=== PATIENT | female | born 1945 | race Caucasian/White ===

== ENCOUNTER → 2017-04-13 17:21 | Outpatient (CLI) | payer MEDICARE ==
[2016-03-14 01:19] VITALS: BMI 31.3
[~2017-04-13 17:21] MED LIST: BAYER CHEWABLE81 MG PO; DIOVAN40 MG PO; GLIMEPIRIDE2 MG PO; LUNESTA3 MG PO; PLAVIX75 MG PO; PRILOSEC20 MG PO; WELLBUTRIN SR150 MG PO; [UNRECOGNIZED DRUG - OTHER]
== END | disposition home or self-care (01) ==
LOC: D.MAMMO 16:00
DX: Z12.31 Encounter for screening mammogram for malignant neoplasm of breast (principal)

== ENCOUNTER 2017-09-28 08:22 | Outpatient (CLI) | payer MEDICARE ==
[~2017-09-28] VITALS: Ht 175.3 cm; Wt 96.4 kg
--- NOTE | ~2017-09-28 | HEMODYNAMI ---
PATIENT:ELIS PEDERSEN MEDICAL RECORD: [id number] : 49 [id number] ADMISSION DATE: 09/28/17 Generatedon:09/28/201710:24 Patient name: ELIS PEDERSEN Patient #: [id number] SSN: : 1945 Date of study: 09/28/2017 Page: Of Hemodynamic Procedure Report Patient Data Patient Demographics Procedure consent was obtained First Name: ELIS Gender: Female Last Name: SLAVA : 1945 Middle Initial: YULIET Age: 72 year(s) Patient #: [id number] Race: Additional ID: [id number] Contact details [address]: [address] [place] [address] State: [place] City: [place] Zip code: [address] Past Medical History Allergies: No known allergies Admission Admission Data Admission Date: 09/28/2017 Admission Time: 8:22 Height (in.): 70 BSA: 2.13 (m2) Height (cm.): 177.8 BMI: 30.13 (kg/m2) Weight (lbs.): 210 Weight (kg.): 95.25 Procedure Procedure Types Cath Procedure Diagnostic Procedure LHC LHC w/Coronaries w/Grafts PCI Procedure Coronary Stent Coronary Stent Initial Miscellaneous Procedures Moderate Sedation up to 15 minutes Procedure Description Procedure Date Procedure Date: 09/28/2017 Procedure Start Time: 9:55 Procedure End Time: 10:22 Procedure Staff Name Function Waylon Headley MD Performing Physician Lita Melgar RT Monitor Andrea Baca RT Scrub Hank Giles RN Nurse Procedure Data Cath Procedure Fluoroscopy Diagnostic fluoroscopy Total fluoroscopy Time: 8.5 time: 8.5 min min Contrast Material Contrast Material Type Amount (ml) Isovue 300 140 Entry Location Entry Primary Successful Side Size Upsize Upsize Entry Closure Succes sful Closure Location (Fr) 1 (Fr) 2 (Fr) Remarks Device Remarks Femoral Right 5 Fr 6 Fr Exoseal artery Short Estimated blood loss: 10 ml Diagnostic catheters Device Type Used For End Catheter Placement MULTIPACK Pigtail 5 Fr LV Angiography catheter MULTIPACK JL 4.0 5Fr Procedure catheter MULTIPACK 3DRC 5Fr Procedure catheter Procedure Complications No complications Procedure Medications Medication Administration Route Dosage 0.9% NaCl I.V. 100 ml/hr Oxygen NC 2 l/min Heparin Flush Bag added to field 2 bags (1000units/500ml NS) Lidocaine 2% added to field 20 Benadryl I.V. 50 mg Versed I.V. 2 mg Fentanyl I.V. 100 mcg Versed I.V. 2 mg Heparin Bolus I.V. 4000 units Fentanyl I.V. 50 mcg Hemodynamics Rest BSA: 2.13 (m2) O2 Consumption: Estimated: 196.62 (ml/min) O2 Consumption indexed : Estimated:92.31 (ml/min/m) Heart Rate: 70 (bpm) Snapshots Pre Cath Intra NCS Post Cath Vital Signs Time Heart Resp SPO2 etCO2 NIBP (mmHg) Rhythm Pain Sedation Rate (ipm) (%) (mmHg) Status Level (bpm) 9:40:42 61 13 100 0 167/71(140) NSR 0 (11) 10(A) , No pain 9:45:06 61 15 100 0 154/76(127) NSR 0 (11) 10(A) , No pain 9:49:24 60 13 98 37.3 140/72(121) NSR 0 (11) 10(A) , No pain 9:53:42 66 30 96 10.6 142/75(123) NSR 0 (11) 10(A) , No pain 9:57:58 66 17 91 0 138/77(109) NSR 0 (11) 10(A) , No pain 10:02:14 70 19 97 28.2 143/79(113) NSR 0 (11) 9(A) , No pain 10:06:28 69 19 97 0 134/71(114) NSR 0 (11) 10(A) , No pain 10:10:42 71 18 95 36.5 137/76(112) NSR 0 (11) 9(A) , No pain 10:14:59 71 17 96 0 150/75(106) NSR 0 (11) 10(A) , No pain 10:19:14 72 16 97 41.8 144/77(116) NSR 0 (11) 10(A) , No pain 10:23:33 67 10 97 44.1 141/73(107) NSR 0 (11) 10(A) , No pain Medications Time Medication Route Dose Verified Delivered Reason Notes Effectiveness by by 9:49:23 0.9% NaCl I.V. 100 Hank Hank Per physician ml/hr Tisha Giles RN RN 9:49:33 Oxygen NC 2 Hank Hank Per physician l/min Tisha Giles RN RN 9:49:45 Heparin Flush added 2 Hank Hank used for Bag to bags Tisha Giles procedure (1000units/500ml field RN RN NS) 9:49:58 Lidocaine 2% added 20ml Hank Hank for local to vial Tisha Giles anesthetic field CABAN RN 9:50:14 Benadryl I.V. 50 mg Hank Hank Per physician Tisha Giles RN RN 9:50:23 Versed I.V. 2 mg Hank Hank for sedation Tisha Giles RN RN 9:50:33 Fentanyl I.V. 100 Hank Hank for sedation nidia Giles RN RN 9:53:07 Versed I.V. 2 mg Hank Hank for sedation Tisha Giles RN RN 10:04:05 Heparin Bolus I.V. 4000 Hank Hank for units Tisha hager RN RN 10:07:52 Fentanyl I.V. 50 Hank Hank for sedation nidia Giles RN crap game box person Log Time Note 9:33:14 Patient Height : 70 inches 9:33:19 Patient Weight : 210 lbs 9:33:52 Diagnostic Cath status Elective 9:33:55 Hank Giles RN sent for patient. Start room use. 9:33:56 Time tracking: Regular hours 9:34:01 Plan of Care:Hemodynamics will remain stable., Cardiac rhythm will remain stable., Comfort level will be maintained., Respiratory function will remain adequate., Patient/ family verbilizes understanding of procedure., Procedure tolerated without complication., Recovers from procedure without complications.. 9:37:07 Patient received from Pre/Post Procedure Room to CCL 3 Alert and oriented. Tansferred to table in Supine position. 9:37:09 Warm blankets applied, and rachelle hugger turned on for patient comfort. 9:37:09 Correct patient and procedure confirmed by team. 9:37:10 Signed procedure consent form obtained from patient. 9:37:11 ECG and BP/O2 sat monitors applied to patient. 9:39:20 Vital chart was started 9:40:06 H&P Date Dictated: 09/21/2017 Within 30 days and on chart., H&P Addendum completed by physician on day of procedure. (MUST COMPLETE FOR ALL OUTPATIENTS). 9:40:10 Pre-procedure instructions explained to patient. 9:40:14 Family in waiting room. 9:40:16 Patient NPO since Midnight. 9:40:23 Patient allergic to No known allergies 9:40:28 Is the patient allergic to Iodine/contrast media? No. 9:40:29 Was the patient premedicated? Yes 9:40:50 Is patient on blood thinner?Yes 9:40:53 ACC The patient was administered the following blood thiners within the last 24 hours: ACCPlavix 9:40:56 Patient diabetic? Yes. 9:40:58 If diabetic: On Metformin? No 9:41:02 Snore? No 9:41:03 Sleep apnea? No 9:41:07 Dentures? No ? 9:41:25 Patient pain scale 0/10 ?. 9:41:33 IV patent on arrival in left hand with 0.9% NaCl at [facility]. 9:41:38 Baseline sample Acquired. 9:41:44 Rhythm: sinus rhythm 9:41:47 Full Disclosure recording started 9:49:23 0.9% NaCl 100 ml/hr I.V. was administered by Hank Giles RN; Per physician; 9:49:23 Lab results completed and on chart. 9:49:28 Right groin area was prepped with chlora-prep and draped in sterile fashion 9:49:29 Alarms reviewed by R. N. 9:49:30 Sharps counted by scrub and verified by R.N. 9:49:30 Physician paged 9:49:31 Physician arrived 9:49:32 --------ALL STOP TIME OUT------ 9:49:32 Final Timeout: patient, procedure, and site verified with staff and physician. All members of the team are in agreement. 9:49:33 Oxygen 2 l/min NC was administered by Hank Giles RN; Per physician; 9:49:37 Right groin site verified by team. 9:49:40 Physical assessment completed. ASA score P 2 - A patient with mild systemic disease as per Waylon Headley MD. 9:49:45 Heparin Flush Bag (1000units/500ml NS) 2 bags added to field was administered by Hank Giles RN; used for procedure; 9:49:48 Sedation plan: IV Moderate Sedation Medication:Versed, Fentanyl 9:49:58 Lidocaine 2% 20ml vial added to field was administered by Hank Giles RN; for local anesthetic; 9:50:14 Benadryl 50 mg I.V. was administered by Hank Giles RN; Per physician; 9:50:23 Versed 2 mg I.V. was administered by Hank Giles RN; for sedation; 9:50:33 Fentanyl 100 mcg I.V. was administered by Hank Giles RN; for sedation; 9:53:07 Versed 2 mg I.V. was administered by Hank Giles RN; for sedation; 9:54:24 Zero performed for pressure channel P1 9:54:36 Use device set Femoral Dx 9:54:37 ACIST Syringe (17917) opened to sterile field. 9:54:38 Bag Decanter (2002S) opened to sterile field. 9:54:38 Medline Cath Pack ([id number]) opened to sterile field. 9:54:38 SHEATH 5FR [place] (ALJ517) opened to sterile field. 9:54:39 DIAGNOSTIC WIRE .035 260cm J wire (018467) opened to sterile field. 9:54:40 ACIST Hand Control (80719) opened to sterile field. 9:54:40 ACIST Manifold (07902) opened to sterile field. 9:54:41 DIAGNOSTIC Multipack 5Fr catheter set (LI4113) opened to sterile field. 9:54:41 Tegaderm 4 x 4 (1626W) opened to sterile field. 9:54:43 PERCUTANEOUS ENTRY 19GA needle opened to sterile field. 9:54:57 Procedure started. 9:55:41 Local anesthetic to right femoral artery with Lidocaine 2% by Waylon Headley MD.INITIAL ACCESS ONLY 9:55:52 A 5 Fr sheath was inserted into the Right Femoral artery 9:56:44 A MULTIPACK Pigtail 5 Fr catheter was advanced over the wire and used for LV Angiography. 9:57:20 EF : 60 % 9:57:22 Catheter removed. 9:57:34 A MULTIPACK JL 4.0 5Fr catheter was advanced over the wire and used for Procedure. 9:57:39 LCA angiography performed. 9:58:37 Catheter removed. 9:58:46 A MULTIPACK 3DRC 5Fr catheter was advanced over the wire and used for Procedure. 9:59:34 RUIZ to LAD angiography performed. 9:59:44 RCA angiography performed. 10:00:56 SVG angiography performed. 10:01:01 SVG to Circ angiography performed. 10:01:12 Catheter removed. 10:01:14 SHEATH 6FR [place] (RDS581) opened to sterile field. 10:02:01 Sheath upsized to a 6 Fr Short. 10:02:32 Proceeding to intervention. 10:02:52 6 Fr AR 1 guide catheter was inserted over the wire 10:02:59 Pt ex wire advanced. 10:03:00 Wire advanced across lesion. 10:03:24 GUIDE 6FR AR 1.0 SH catheter ([id number]) opened to sterile field. 10:03:29 INFLATOR Merit BasixCompak (VO3319) opened to sterile field. 10:04:05 Heparin Bolus 4000 units I.V. was administered by Hank Giles RN; for anticoagulation; 10:06:00 CHOICE PT Extra Support 182cm wire ([id number]) opened to sterile field. 10:07:10 2.0x15 unable to cross 10:07:52 Fentanyl 50 mcg I.V. was administered by Hank Giles RN; for sedation; 10:08:13 Inflation number: 1 A EUPHORA 1.5 x 15 Balloon ([id number]) was prepped and advanced across the Dist RCA, then inflated to 17 JOHN for 0:10 (min:sec). 10:08:22 Inflation number: 2 The EUPHORA 1.5 x 15 Balloon ([id number]) was reinflated across the Dist RCA, to 17 JOHN for 0:10 (min:sec). 10:09:40 Balloon removed over the wire. 10:09:47 Guide Catheter removed. unable to cross lesion. 10:12:02 CHOICE PT Extra Support J 300cm guide wire ([id number]) opened to sterile field. 10:12:24 GUIDE 6FR AR 2.0 SH catheter ([id number]) opened to sterile field. 10:12:36 Study PCI Site: [place] dRCA has 99% stenosis. 10:12:44 6 Fr AR2 guide catheter was inserted over the wire 10:12:57 EXTRA SUPPORT wire advanced. 10:12:59 Wire advanced across lesion. 10:13:32 Inflation number: 3 A MAVERICK 1.5 X 15 balloon ([id number]) was prepped and advanced across the Dist RCA, then inflated to 17 JOHN for 0:06 (min:sec). 10:15:00 Balloon removed over the wire. 10:15:29 Inflation Number: 1 A REBECA RX 2.25 x 12 stent ([id number]) was prepped and advanced across the Mid RCA. The stent was deployed at 21 JOHN for 0:10 (min:sec). 10:16:21 UNABLE TO CROSS DISTAL RCA LESION. STENT PLACED IN MID RCA. 10:16:49 EXOSEAL 6Fr (EX600) opened to sterile field. 10:16:54 Wire removed. 10:16:55 Guide catheter removed. 10:17:06 Sheath removed intact; hemostasis achieved with Exoseal to the Right Femoral artery. 10:19:05 Procedure ended.(Physican Out) 10:19:20 Fluoroscopy time 08.50 minutes. 10:19:34 Contrast amount:Isovue 300 140ml. 10:19:36 Sharps counted by scrub and verified by R.N. 10:19:40 Insertion/operative site no bleeding no hematoma. 10:19:47 Post right femoral artery:stable 10:19:51 Post Procedure Pulses reassessed and unchanged 10:19:55 Post-procedure physical assessment completed. ASA score P 2 - A patient with mild systemic disease as per Waylon Headley MD. 10:19:59 Post procedure rhythm: unchanged. 10:20:10 Estimated blood loss: 10 ml 10:20:14 Post procedure instruction explained to patient.Patient verbalizes understanding. 10:20:35 Procedure type changed to Cath procedure, Diagnostic procedure, LHC, LHC w/Coronaries w/Grafts, PCI procedure, Coronary Stent, Coronary Stent Initial, Miscellaneous Procedures, Moderate Sedation up to 15 minutes 10:20:37 Procedure and supply charges have been captured, reviewed, submitted and are correct. 10:22:47 Procedure Complication : No complications 10:22:49 Vital chart was stopped 10:22:50 See physician's report for complete and final results. 10:22:57 Patient transfered to Pre/Post Procedure Room with Stretcher. 10:22:59 Procedure ended. 10:22:59 Full Disclosure recording stopped 10:23:01 End room use (Document Last) 10:23:14 ACC-PCI Only Patient was given prescriptions, or instructed by Waylon Headley MD to start/continue the following medications upon discharge: Plavix Intervention Summary Intervention Notes Time ActionType Lesion and Equipment Used Action# Pressure Duration Attributes 10:08:13 Inflate Dist RCA EUPHORA 1.5 x 1 17 00:10 balloon 15 Balloon ([id number]) 10:08:22 Reinflate Dist RCA EUPHORA 1.5 x 2 17 00:10 balloon 15 Balloon ([id number]) 10:13:32 Inflate Dist RCA MAVERICK 1.5 X 3 17 00:06 balloon 15 balloon ([id number]) 10:15:29 Place stent Mid RCA REBECA RX 2.25 x 1 21 00:10 12 stent ([id number]) Device Usage Item Name Manufacture Quantity Catalog Number Hospital Part Current Minimal Lot# / Charge Number Stock Stock Serial# Code ACIST Syringe Acist 1 60130 878308 862271 [id number] 20 (02541) Medical Systems Inc Bag Decanter Microtek 1 2001S 338936 92562 869901 5 () Medical Inc. Medline Cath Cardinal 1 [id number] 392797 85646 934985 5 Pack Health ([id number]) SHEATH 5FR Terumo 1 VFH826 213223 731324 852972 40 [place] (JEH371) DIAGNOSTIC St [place] 1 262622 914333 172241 900270 30 WIRE .035 260cm J wire (226485) ACIST Hand Acist 1 46271 096970 184732 684853 5 Control Medical (08614) Systems Inc ACIST Manifold Acist 1 15408 173132 977485 043496 5 (12348) Medical Systems Inc DIAGNOSTIC Cardinal 1 AE1352 299650 64336 865045 30 Multipack 5Fr Health catheter set (NN6915) Tegaderm 4 x 4 3M 1 1626W 769525 927414 460334 5 (1626W) PERCUTANEOUS Cook Medical 1 W28091 716902 770667 5 ENTRY 19GA needle MULTIPACK Cardinal 1 012524 5 Pigtail 5 Fr Health catheter MULTIPACK JL Cardinal 1 405274 5 4.0 5Fr Health catheter MULTIPACK 3DRC Cardinal 1 840805 5 5Fr catheter Health SHEATH 6FR Terumo 1 TZH454 078916 560215 072360 40 [place] (CUY454) GUIDE 6FR AR Medtronic 1 [id number] 314959 56403 298309 1 1.0 SH catheter ([id number]) INFLATOR Merit Merit 1 TP0627 061406 661237 669462 15 BasixCompak Medical (YO8840) CHOICE PT [place] 1 [id number] 483656 121350 824562 5 Extra Support Scientific 182cm wire ([id number]) EUPHORA 1.5 x Medtronic 1 [id number] 402321 460906 165780 5 [id number] 15 Balloon ([id number]) CHOICE PT [place] 1 [id number] 855086 405894 629538 5 Extra Support Scientific J 300cm guide wire ([id number]) GUIDE 6FR AR Medtronic 1 [id number] 825094 12077 282381 1 2.0 SH catheter (RT4BI1AP) MAVERICK 1.5 X [place] 1 [id number] 044056 334767 176692 1 [id number] 15 balloon Scientific ([id number]) REBECA RX 2.25 x Medtronic 1 [id number] 252305 3746362 974120 5 [id number] 12 stent ([id number]) EXOSEAL 6Fr Cardinal 1 EX600 063262 346172 375582 10 (EX600) Health Signature Audit [place] Stage Time Signature Unsigned Intra-Procedure 09/28/2017 Lita Melgar 10:24:15 AM RT(R) Signatures Monitor : Lita Melgar Signature : RT Date : Time : [facility] [address] [place] [address]
--- NOTE | ~2017-09-28 | OP ---
PATIENT NAME: ELIS PEDERSEN MEDICAL RECORD: [id number] :49 LOCATION:D.CAT ADMISSION DATE: SURGEON: ESTEBAN KELLER MD DATE OF OPERATION: 09/28/2017 PROCEDURES: 1. PTCA stent to RCA. 2. Left heart catheterization. 3. Selective coronary angiography. 4. Left ventriculogram. 5. Vein graft angiography. 6. RUIZ angiography. INDICATION: Angina and coronary artery disease. PROCEDURE IN DETAIL: After informed consent was obtained and after detailed explanation of risks, benefits as well as alternative therapies, the patient elected to proceed with angiogram and angioplasty. The right femoral area was prepped and draped in normal sterile fashion. Right femoral artery was cannulated via modified Seldinger technique with placement of 6-Turkish sheath. All catheters exchanged through this sheath. FINDINGS: Left ventriculogram was performed in standard 30-degree BREWER view, reveals preserved cardiac wall motion, ejection fraction 50%. SELECTIVE CORONARY ANGIOGRAPHY: 1. Left main showed no significant angiographic disease. 2. Left anterior descending is totally occluded. 3. RUIZ to the LAD is widely patent. Distal LAD is widely patent. 4. Left circumflex is totally occluded. 5. Vein graft in a skipped fashion to OM1 and OM2 is widely patent. The distal obtuse marginals are patent, but small and diffusely diseased. 6. The right coronary artery has previously placed stents. There is 70% stenosis in the mid vessel after this followed by a 99% stenosis of the PLV. The PLV and PDA are both very small diffusely diseased vessels throughout. PTCA STENT OF THE RIGHT CORONARY ARTERY: The stent used was a 2.25 x 12 mm Jani. We attempted to balloon the lesion in the PLV; however, no balloon would traverse this, not a 1.5 [place] or [place]. IMPRESSION: Successful percutaneous transluminal coronary angioplasty stent of the right coronary artery going from 70% initial stenosis to 0% residual stenosis. Distal disease to the RCA at 99% could not be crossed by any balloon. This will be treated medically. TRANSINT:[id number] Voice Confirmation ID: [id number] DOCUMENT ID: [id number] OPERATIVE REPORT [id number] ELIS PEDERSEN ESTEBAN KELLER MD at 1800 CC: [id number] DICTATION DATE: 09/28/17 1020 EXERCISE MANAGER: 09/28/17 1211 DEP CLI 09/28/17 [id number] [place] [address]
[2017-09-28] MEDS ORDERED: ZANAFLEX2 M1 PO (08:42)
[2017-09-28] MEDS ORDERED: DIOVAN80 MG PO (08:43)
[2017-09-28] MEDS ORDERED: PRESERVISION AR1 CAP PO (08:44)
[2017-09-28] MEDS ORDERED: FOLIC ACID0.8 MG PO (08:44)
[2017-09-28 09:02] LABS: BASOPHILS 1.1 % (0-2); EOSINOPHILS 5.5 % (0-7); HEMATOCRIT 34.3 % (36.0-48.0); HEMOGLOBIN 10.5 g/dL (12-16); IMMATURE GRANULOCYTES 0.2 % (0-5); MCH 26.4 pg (26.0-34.0); MCHC 30.6 g/dL (31.0-37.0); MCV 86.4 fL (80.0-100.0); MEAN PLATELET VOLUME 9.9 fL (7.4-10.4); MONOCYTES 12.4 % (2-11); NEUTROPHILS 56.8 % (40-80); PLATELET COUNT 200 10x3/uL (130-400); RBC 3.97 10x6/uL (4.00-5.40); RDW 15.5 % (11.5-14.5); WBC 5.5 10x3/uL (4.8-10.8)
[2017-09-28 09:04] VITALS: BP 146/64; Ht 175.3 cm; Wt 96.4 kg
[2017-09-28 09:13] LABS: ANION GAP 13.8 mmol/L (8-16); CALCIUM 8.1 mg/dL (8.5-10.1); CARBON DIOXIDE 26.4 mmol/L (21.0-32.0); CREATININE - SERUM 1.5 mg/dL (0.6-1.3); POTASSIUM - SERUM 4.2 mmol/L (3.5-5.1)
== END 2017-09-28 14:21 | disposition home or self-care (01) ==
LOC: D.CATH 08:22
PROVIDERS: Internal Medicine Interventional Cardiology
DX: I25.119 Atherosclerotic heart disease of native coronary artery with unspecified angina pectoris (principal); Z01.812 Encounter for preprocedural laboratory examination
CPT/HCPCS: 93459; C9600

== ENCOUNTER 2018-07-27 10:36 | Outpatient (CLI) | payer MEDICARE ==
[~2018-07-27] VITALS: Ht 175.3 cm; Wt 84.1 kg
--- NOTE | ~2018-07-27 | HEMODYNAMI ---
PATIENT:ELIS PEDERSEN MEDICAL RECORD: [id number] : 49 LOCATION:[facility] [address]# [id number] ADMISSION DATE: 07/27/18 Generatedon:07/27/201816:07 Patient name: ELIS PEDERSEN Patient #: [id number] SSN: : 1945 Date of study: 07/27/2018 Page: Of Hemodynamic Procedure Report Patient Data Patient Demographics Procedure consent was obtained First Name: ELIS Gender: Female Last Name: SLAVA : 1945 [facility] Initial: YULIET Age: 73 year(s) Patient #: [id number] Race: Additional ID: [id number] Contact details Address: [address] [place] [address] State: [place] City: [place] Zip code: [address] Past Medical History Allergies: No known allergies Admission Admission Data Admission Date: 07/27/2018 Admission Time: 13:34 Room #: E03 Height (in.): 68.9 BSA: 2 (m2) Height (cm.): 175 BMI: 27.43 (kg/m2) Weight (lbs.): 185.19 Weight (kg.): 84 Lab Results Lab Result Date: 07/27/2018 Lab Result Time: 0:00 Biochemistry Name Units Result Min Max BUN mg/dl 31 --(----)-* 7 18 Creatinine mg/dl 1.8 --(----)-* 0.6 1.3 CBC Name Units Result Min Max Hemoglobin g/dl 12.7 -*(----)-- 13.5 17.5 Procedure Procedure Types Cath Procedure Diagnostic Procedure LHC LHC w/Coronaries w/Grafts PCI Procedure Coronary Stent Coronary Stent Initial x2 Procedure Description Procedure Date Procedure Date: 07/27/2018 Procedure Start Time: 15:36 Procedure End Time: 16:07 Procedure Staff Name Function Waylon Headley MD Performing Physician Hank Giles RN Nurse Summer Garcia RT Scrub Paul Mcgill RT Monitor Procedure Data Cath Procedure Fluoroscopy Diagnostic fluoroscopy Total fluoroscopy Time: 9.7 time: 9.7 min min Diagnostic fluoroscopy Total fluoroscopy dose: dose: 1206 mGy 1206 mGy Contrast Material Contrast Material Type Amount (ml) Isovue 300 152 Entry Location Entry Primary Successful Side Size Upsize Upsize Entry Closure Succes sful Closure Location (Fr) 1 (Fr) 2 (Fr) Remarks Device Remarks Femoral Right 5 Fr 6 Fr Exoseal artery Short Estimated blood loss: 20 ml Diagnostic catheters Device Type Used For End Catheter Placement MULTIPACK Pigtail 5 Fr Procedure catheter MULTIPACK JL 4.0 5Fr Procedure catheter MULTIPACK 3DRC 5Fr Procedure catheter DIAGNOSTIC AR MOD 5Fr Procedure Catheter ([id number]) Procedure Medications Medication Administration Route Dosage 0.9% NaCl I.V. 100 ml/hr Oxygen etCO2 Nasal cannula 2 l/min Heparin Flush Bag added to field 2 bags (1000units/500ml NS) Lidocaine 2% added to field 20 Versed I.V. 2 mg Fentanyl I.V. 100 mcg Versed I.V. 1 mg Heparin Bolus I.V. 4000 units Versed I.V. 1 mg Hemodynamics Rest BSA: 2 (m2) HGB: 12.7 (g/dl) O2 Consumption: Estimated: 193.09 (ml/min) O2 Consu mption indexed: Estimated:96.54 (ml/min/m) Heart Rate: 82 (bpm) Pressure Samples Time Site Value (mmHg) Purpose Heart Use Rate(bpm) 15:37 LV 126/1,6 Snapshot 73 Snapshots Pre Cath Intra NCS Post Cath Vital Signs Time Heart Resp SPO2 etCO2 NIBP (mmHg) Rhythm Pain Sedation Rate (ipm) (%) (mmHg) Status Level (bpm) 15:27:10 83 16 99 0 166/87(125) NSR 0 (11) 10(A) , No pain 15:31:30 80 18 100 32.1 150/78(112) NSR 0 (11) 10(A) , No pain 15:35:48 81 12 98 14.1 125/67(104) NSR 0 (11) 10(A) , No pain 15:39:56 82 13 98 23.1 119/68(96) NSR 0 (11) 10(A) , No pain 15:44:04 85 14 99 36.5 123/67(93) NSR 0 (11) 9(A) , No pain 15:48:12 84 13 99 32.8 120/65(88) NSR 0 (11) 9(A) , No pain 15:53:11 86 17 100 34.3 143/81(120) NSR 0 (11) 10(A) , No pain 15:57:23 84 17 100 33.6 143/80(121) NSR 0 (11) 10(A) , No pain 16:01:36 84 17 100 30.6 136/74(115) NSR 0 (11) 10(A) , No pain 16:05:49 84 14 98 32.1 124/73(96) NSR 0 (11) 10(A) , No pain Medications Time Medication Route Dose Verified Delivered Reason Notes Effectiveness by by 15:29:23 0.9% NaCl I.V. 100 Hank Hank Per physician ml/hr Tisha Giles RN RN 15:29:32 Oxygen etCO2 2 Hank Hank Per physician Nasal l/min Tisha Giles cannula RN RN 15:29:41 Heparin Flush added 2 Hank Hank used for Bag to bags Tisha Giles procedure (1000units/500ml field RN RN NS) 15:30:10 Lidocaine 2% added 20ml Hank Hank for local to vial Tisha Giles anesthetic field RN RN 15:32:41 Versed I.V. 2 mg Hank Hank for sedation Tisha Giles RN RN 15:32:48 Fentanyl I.V. 100 Hank Hank for sedation mcg Tisha Giles RN RN 15:38:05 Versed I.V. 1 mg Hank Hank for sedation Tisha Giles RN RN 15:44:53 Heparin Bolus I.V. 4000 Hank Hank for units Tisha Giles anticoagulation RN RN 15:55:57 Versed I.V. 1 mg Hank Hank for sedation Tisha Giles RN dimethylaniline sulfator operator Log Time Note 15:17:06 Patient Height : 68.9 inches 15:17:10 Patient Weight : 185.19 lbs 15:17:51 Lab Result : BUN 31 mg/dl 15:17:51 Lab Result : Creatinine 1.8 mg/dl 15:17:51 Lab Result : Hemoglobin 12.7 g/dl 15:18:28 Diagnostic Cath status Elective 15:18:30 Hank Giles RN sent for patient. Start room use. 15:18:32 Time tracking: Regular hours (M-F 7:00 - 5:00) 15:18:38 Plan of Care:Hemodynamics will remain stable., Cardiac rhythm will remain stable., Comfort level will be maintained., Respiratory function will remain adequate., Patient/ family verbilizes understanding of procedure., Procedure tolerated without complication., Recovers from procedure without complications.. 15:18:53 Patient received from Pre/Post Procedure Room to CCL 2 Alert and oriented. Tansferred to table in Supine position. 15:18:58 Warm blankets applied, and rachelle hugger turned on for patient comfort. 15:25:47 Correct patient and procedure confirmed by team. 15:26:01 Signed procedure consent form obtained from patient. 15:26:02 ECG and BP/O2 sat monitors applied to patient. 15:26:03 Vital chart was started 15:26:04 Baseline sample Acquired. 15:26:08 Rhythm: sinus rhythm 15:26:11 Full Disclosure recording started 15:26:16 H&P Date Dictated: 07/27/2018 ER History on chart.. 15:26:19 Pre-procedure instructions explained to patient. 15:26:19 Pre-op teaching completed and patient verbalized understanding. 15:26:23 Family in waiting room. 15:26:29 Patient NPO since Breakfast. 15:27:55 Patient allergic to No known allergies 15:28:00 Is the patient allergic to Iodine/contrast media? No. 15:28:13 Is patient on blood thinner?Yes 15:28:17 ACC The patient was administered the following blood thiners within the last 24 hours: ACCAspirin, ACCPlavix 15:28:20 Patient diabetic? Yes. 15:28:21 If diabetic: On Metformin? No 15:28:33 DIET CONTROLLED 15::38 ----Pre-sedation anethsthesia assessment.---- 15:28:41 Previous problem with sedation/anesthesia? No ? 15:28:43 Snore? Yes 15:28:46 Sleep apnea? Yes 15:28:48 Deviated septum? No 15:28:50 Opens mouth fully? Yes 15:28:51 Sticks out tongue? Yes 15:28:55 Airway obstruction? No ? 15:29:00 Dentures? No ? 15:29:23 0.9% NaCl 100 ml/hr I.V. was administered by Hank Giles RN; Per physician; 15:29:32 Oxygen 2 l/min etCO2 Nasal cannula was administered by Hank Giles RN; Per physician; 15:29:34 Lab results completed and on chart. 15:29:39 Right groin area was prepped with chlora-prep and draped in sterile fashion 15::41 Heparin Flush Bag (1000units/500ml NS) 2 bags added to field was administered by Hank iGles RN; used for procedure; 15::41 Alarms reviewed by R. N. 15::42 Sharps counted by scrub and verified by R.N. 15:30:10 Lidocaine 2% 20ml vial added to field was administered by Hank Giles RN; for local anesthetic; 15:30:53 IV patent on arrival in left wrist with 0.9% NaCl at [facility]. 15:31:15 Physician arrived 15:31:16 --------ALL STOP TIME OUT------ 15:31:16 Final Timeout: patient, procedure, and site verified with staff and physician. All members of the team are in agreement. 15:31:19 Right groin site verified by team. 15:31:24 Physical assessment completed. ASA score P 2 - A patient with mild systemic disease as per Waylon Headley MD. 15:31:31 Sedation plan: IV Moderate Sedation Medication:Versed, Fentanyl 15:31:55 Use device set Femoral Dx 15:31:56 ACIST Syringe (02830) opened to sterile field. 15:31:57 Bag Decanter () opened to sterile field. 15:31:58 Medline Cath Pack ([id number]) opened to sterile field. 15:31:58 DIAGNOSTIC WIRE .035 260cm J wire (201746) opened to sterile field. 15:32:03 ACIST Hand Control (54952) opened to sterile field. 15:32:04 ACIST Manifold (61710) opened to sterile field. 15:32:05 DIAGNOSTIC Multipack 5Fr catheter set (DY6558) opened to sterile field. 15:32:06 Tegaderm 4 x 4 (1626W) opened to sterile field. 15:32:19 SHEATH 5FR [place] (REQ900) opened to sterile field. 15:32:41 Versed 2 mg I.V. was administered by Hank Giles RN; for sedation; 15:32:48 Fentanyl 100 mcg I.V. was administered by Hank Giles RN; for sedation; 15:34:33 Zero performed for pressure channel P1 15:36:34 Procedure started. 15:36:41 Local anesthetic to right femoral artery with Lidocaine 2% by Waylon Headley MD.INITIAL ACCESS ONLY 15:37:11 A 5 Fr sheath was inserted into the Right Femoral artery 15:37:14 Zero performed for pressure channel P1 15:37:17 Zero performed for pressure channel P1 15:37:42 A MULTIPACK Pigtail 5 Fr catheter was advanced over the wire and used for Procedure. 15:38:03 LV gram done using BREWER 15:38:05 Versed 1 mg I.V. was administered by Hank Giles RN; for sedation; 15:38:08 EF : 60 % 15:38:10 LV hemodynamics recorded. 15:38:11 Catheter removed. 15:38:17 A MULTIPACK JL 4.0 5Fr catheter was advanced over the wire and used for Procedure. 15:39:28 LCA angiography performed. 15:39:31 Catheter removed. 15:40:00 A MULTIPACK 3DRC 5Fr catheter was advanced over the wire and used for Procedure. 15:40:03 RUIZ to LAD angiography performed. 15:40:18 RCA angiography performed. 15:40:42 SHEATH 6FR [place] (SES818) opened to sterile field. 15:40:43 CHOICE PT Extra Support 182cm wire ([id number]) opened to sterile field. 15:40:44 INFLATOR Merit BasixCompak (UK2721) opened to sterile field. 15:41:50 Catheter removed. 15:41:59 A DIAGNOSTIC AR MOD 5Fr Catheter ([id number]) was advanced over the wire and used for Procedure. 15:42:19 RCA GRAFT CLOSED 15:42:32 SVG to Circ angiography performed. 15:42:48 Catheter removed. 15:43:00 GUIDE 6FR AR 1.0 SH catheter ([id number]) opened to sterile field. 15:43:06 Proceeding to intervention. 15:43:37 Sheath upsized to a 6 Fr Short. 15:43:49 6 Fr AR 1 SH guide catheter was inserted over the wire 15:44:15 RCA 15:44:37 CHOICE wire advanced. 15:44:39 Wire advanced across lesion. 15:44:53 Heparin Bolus 4000 units I.V. was administered by Hank Giles RN; for anticoagulation; 15:46:03 Procedure type changed to Cath procedure, Diagnostic procedure, LHC, LHC w/Coronaries w/Grafts, PCI procedure, Coronary Stent, Coronary Stent Initial x2 15:47:28 Inflate balloon Inflation number: 1 A EUPHORA 2.0 x 15 Balloon ([id number]) was prepped and advanced across the Dist RCA, then inflated to 11 JOHN for 0:10 (min:sec). 15:47:32 Balloon removed over the wire. 15:48:19 Inflate balloon Inflation number: 2 A EUPHORA 1.5 x 12 balloon ([id number]) was prepped and advanced across the Dist RCA, then inflated to 21 JOHN for 0:10 (min:sec). 15:48:39 Inflation number: 3 The EUPHORA 1.5 x 12 balloon ([id number]) was reinflated across the Dist RCA, to 21 JOHN for 0:10 (min:sec). 15:48:44 Balloon removed over the wire. 15:49:49 Inflation number: 4 The EUPHORA 2.0 x 15 Balloon ([id number]) was reinflated across the Dist RCA, to 17 JOHN for 0:10 (min:sec). 15:51:27 Balloon removed over the wire. 15:51:38 Place stent Inflation Number: 5 A REBECA RX 2.25 x 18 stent ([id number]) was prepped and advanced across the Dist RCA. The stent was deployed at 9 JOHN for 0:10 (min:sec). 15:52:16 Stent catheter was removed intact over wire. 15:52:17 Wire removed. 15:52:20 Guide catheter removed. 15:52:54 GUIDE 6FR XBLAD 3.5 catheter ([id number]) opened to sterile field. 15:53:09 6 Fr XBLAD 3.5 guide catheter was inserted over the wire 15:53:59 CHOICE wire advanced. 15:55:57 Versed 1 mg I.V. was administered by Hank Giles RN; for sedation; 15:56:30 Inflation number: 1 The EUPHORA 2.0 x 15 Balloon ([id number]) was reinflated across the 1st Diag, to 9 JOHN for 0:10 (min:sec). 15:57:08 Inflation number: 2 The EUPHORA 2.0 x 15 Balloon ([id number]) was reinflated across the 1st Diag, to 9 JOHN for 0:30 (min:sec). 15:57:41 Inflation number: 3 The EUPHORA 2.0 x 15 Balloon ([id number]) was reinflated across the 1st Diag, to 11 JOHN for 0:10 (min:sec). 15:58:08 Balloon removed over the wire. 15:59:39 Place stent Inflation Number: 4 A REBECA RX 2.0 x 15 stent ([id number]) was prepped and advanced across the 1st Diag. The stent was deployed at 11 JOHN for 0:10 (min:sec). 16:00:08 Stent catheter was removed intact over wire. 16:00:16 Wire removed. 16:00:17 Guide catheter removed. 16:00:36 EXOSEAL 6Fr (EX600) opened to sterile field. 16:02:07 Sheath removed intact; hemostasis achieved with Exoseal to the Right Femoral artery. 16:02:10 Procedure ended.(Physican Out) 16:02:20 Fluoroscopy time 09.70 minutes. 16:02:26 Flurop Dose total: 1206 16:02:26 Fluoroscopy dose: 1206 mGy 16:02:36 Contrast amount:Isovue 300 152ml. 16:06:00 Insertion/operative site no bleeding no hematoma. 16:06:06 Post-op/insertion site Right Femoral artery dressed using a 4 x 4 and Tegaderm. 16:06:24 Post right femoral artery:stable 16:06:29 Post Procedure Pulses reassessed and unchanged 16:06:33 Post procedure: right dorsailis pedis pulse 2+ Normal; easily identifiable; not easily obliterated. 16:06:38 Post-procedure physical assessment completed. ASA score P 2 - A patient with mild systemic disease as per Waylon Headley MD. 16:06:42 Post procedure rhythm: unchanged., sinus rhythm 16:06:45 Estimated blood loss: 20 ml 16:06:47 Post procedure instruction explained to patient.Patient verbalizes understanding. 16:06:57 Patient needs reinforcement of post procedure teaching. 16:06:59 Procedure and supply charges have been captured, reviewed, submitted and are correct. 16:07:05 Vital chart was stopped 16:07:05 See physician's report for complete and final results. 16:07:08 Report given to Pre/Post Procedure Room. 16:07:12 Patient transfered to Pre/Post Procedure Room with Stretcher. 16:07:14 Procedure ended. 16:07:14 Full Disclosure recording stopped 16:07:18 End room use (Document Last) Intervention Summary Intervention Notes Time ActionType Lesion and Equipment Used Action# Pressure Duration Attributes 15:47:28 Inflate Dist RCA EUPHORA 2.0 x 1 11 00:10 balloon 15 Balloon ([id number]) 15:48:19 Inflate Dist RCA EUPHORA 1.5 x 2 21 00:10 balloon 12 balloon ([id number]) 15:48:39 Reinflate Dist RCA EUPHORA 1.5 x 3 21 00:10 balloon 12 balloon ([id number]) 15:49:49 Reinflate Dist RCA EUPHORA 2.0 x 4 17 00:10 balloon 15 Balloon ([id number]) 15:51:38 Place stent Dist RCA REBECA RX 2.25 x 5 9 00:10 18 stent ([id number]) 15:56:30 Reinflate 1st Diag EUPHORA 2.0 x 1 9 00:10 balloon 15 Balloon ([id number]) 15:57:08 Reinflate 1st Diag EUPHORA 2.0 x 2 9 00:30 balloon 15 Balloon ([id number]) 15:57:41 Reinflate 1st Diag EUPHORA 2.0 x 3 11 00:10 balloon 15 Balloon ([id number]) 15:59:39 Place stent 1st Diag REBECA RX 2.0 x 4 11 00:10 15 stent ([id number]) Device Usage Item Name Manufacture Quantity Catalog Number Hospital Part Current M inimal Lot# / Charge Number Stock Stock Serial# Code ACIST Syringe Acist 1 84584 [id number] 879738 397951 2 0 (66736) Medical Systems Inc Bag Decanter Microtek 1 624102 21380 512787 5 () Medical Inc. Medline Cath Medline 1 [id number] 534819 92335 402378 5 Pack ([id number]) DIAGNOSTIC St Jose 1 656192 998890 628665 186760 3 0 WIRE .035 260cm J wire (793162) ACIST Hand Acist 1 39212 580047 818403 196379 5 Control Medical (41836) Systems Inc ACIST Manifold Acist 1 79169 531016 335074 606115 5 (94680) Medical Systems Inc DIAGNOSTIC Cardinal 1 VR0263 325630 13661 242926 3 0 Multipack 5Fr Health catheter set (JP4202) Tegaderm 4 x 4 3M 1 1626W 476639 586951 588007 5 (1626W) SHEATH 5FR Terumo 1 SJI300 976625 500539 652575 4 0 [place] (WAY134) MULTIPACK Cardinal 1 676888 5 Pigtail 5 Fr Health catheter MULTIPACK JL Cardinal 1 341980 5 4.0 5Fr Health catheter MULTIPACK 3DRC Cardinal 1 705299 5 5Fr catheter Health SHEATH 6FR Terumo 1 GCM041 510277 499274 365883 4 0 [place] (LUC588) CHOICE PT Ragland 1 [id number] 003685 044521 866482 5 Extra Support Scientific 182cm wire ([id number]) INFLATOR Merit Merit 1 JG6869 105453 212873 448214 1 5 [facility] (AP3652) DIAGNOSTIC AR Cardinal 1 834802N 388159 950019 092281 1 5 MOD 5Fr Health Catheter (728493H) GUIDE 6FR AR Medtronic 1 [id number] 924838 81328 666639 1 1.0 SH catheter ([id number]) EUPHORA 2.0 x Medtronic 1 HSE6905L 068877 470420 482774 5 [id number] 15 Balloon (FSU8499P) EUPHORA 1.5 x Medtronic 1 ADR4077J 286549 217647 685417 5 [id number] 12 balloon (GWU3107M) REBECA RX 2.25 x Medtronic 1 [id number] 924913 4439416 538110 5 [id number] 18 stent ([id number]) GUIDE 6FR Cardinal 1 12367650 423899 211380 635043 1 0 XBLAD 3.5 Health catheter (15771474) REBECA RX 2.0 x Medtronic 1 [id number] 610728 8068819 336442 5 [id number] 15 stent ([id number]) EXOSEAL 6Fr Cardinal 1 EX600 339409 975778 481142 1 0 (EX600) Health Signature Audit Confluence Stage Time Signature Unsigned Intra-Procedure 07/27/2018 Paul Mcgill 4:07:42 PM RT(R) (CV) Signatures Monitor : Paul Mcgill RT Signature : Date : Time : [address] [place] [address]
--- NOTE | ~2018-07-27 | CN ---
PATIENT NAME:ELIS YOU MEDICAL RECORD: [id number] : 49 LOCATION:[facility] ADMIT DATE: 07/27/18 ACCOUNT: [id number] CONSULTING PHYSICIAN: ESTEBAN KELLER MD REFERRING PHYSICIAN: ESTEBAN KELLER MD DATE OF CONSULTATION: 07/27/2018 DIAGNOSES: 1. Unstable angina. 2. Coronary artery disease. 3. Previous PTCA stent. 4. Hypertension. 5. Hyperlipidemia. HISTORY OF PRESENT ILLNESS: Mrs. You presents with anginal symptomatology since the middle of the night just like that of her previous angina. PHYSICAL EXAMINATION: GENERAL APPEARANCE: Well-nourished, well-developed, appears stated age. Level of distress, comfortable. PSYCHIATRIC: Mental status, alert, normal affect. Orientation, oriented to time, place and person. EYES: Lids and conjunctiva, noninjected. No discharge, no pallor. ENT: Lips, teeth, gums, normal dentition. Oropharynx, no cyanosis, no pallor. NECK: Carotid arteries, bilateral normal upstroke, no bruits, no thrills. JUGULAR VEINS: No jugular venous pressure or distention. CERVICAL LYMPH NODES: Nontender, nonenlarged. THYROID: Not enlarged. Nontender. No nodules. LUNGS: Respiratory effort, unlabored. CHEST: Normal curvature. No thoracic deformity. No chest wall tenderness. Percussion, resonant. Auscultation, clear. No wheezes, no rales, no rhonchi. CARDIOVASCULAR: Precordial exam, nondisplaced. No heaves or pericardial thrills. Rate and rhythm, regular. Heart sounds, normal S1, normal S2. No S3, no gallop, no rub. Systolic murmur, not heard. Diastolic murmur, not heard. EXTREMITIES: No cyanosis, no edema. Peripheral pulses, full and equal in all extremities, except as noted. No bruits appreciated. ABDOMEN: Soft, nondistended. Normal aorta. No bruit. Nontender. No masses. Liver, nontender, no hepatomegaly. Spleen, nontender, no splenomegaly. MUSCULOSKELETAL: No joint tenderness. No joint swelling. No erythema. NEUROLOGICAL: Normal gait, normal strength, normal tone. SKIN: Warm and dry. REVIEW OF SYSTEMS: The patient reports easy bruising but reports no swollen glands. The patient reports no fever, no night sweats, no significant weight gain, no significant weight loss. No significant exercise tolerance. The patient reports no dry eyes, no irritation, no vision change. Patient reports no difficulty hearing and no ear pain. Patient reports no frequent nose bleeds or nose and sinus problems. Patient reports on arm pain on exertion. No shortness of breath while lying down. No history of heart murmur. Patient reports no cough, no wheezing or coughing up blood. Patient reports no abdominal pain, no vomiting. Normal appetite. No diarrhea and not vomiting blood. No nausea and no constipation. Patient reports no incontinence. No difficulty urinating. No hematuria. No increased frequency. Patient reports no muscle aches. No weakness, no arthralgias, no back pain. No swelling of the extremities. Patient reports no abnormal mole, no jaundice, no rashes. Reports CONSULT REPORT [id number] ELIS YOU no loss of consciousness. No weakness and no numbness. No seizures, dizziness, or headaches. The patient reports no depression, no sleep disturbance, feeling safe in a relationship and no alcohol abuse. Patient reports on fatigue. Reports no runny nose or sinus pressure. No itching, no hives, and no frequent sneezing. OVERALL IMPRESSION: Anginal symptomatology with significant past cardiac history, most likely she has recurrent hemodynamically significant coronary artery disease. We will proceed with coronary angiography. Further care depends upon the findings of the angiography. TRANSINT:[id number] Voice Confirmation ID: [id number] DOCUMENT ID: [id number] ESTEBAN KELLER MD at 1718 CC: [id number] DICTATION DATE: 07/27/18 1305 ENVIRONMENTAL PROTECTION GEOLOGIST: 07/27/18 1526 DIS IN 07/27/18 [address] [place] [address]
--- NOTE | ~2018-07-27 | OP ---
PATIENT NAME: ELIS PEDERSEN MEDICAL RECORD: [id number] :49 [facility] ADMISSION DATE:07/27/18 SURGEON: ESTEBAN KELLER MD DATE OF OPERATION: 07/27/2018 PROCEDURES: 1. PTCA and stent, LAD diagonal. 2. PTCA and stent, RCA. 3. Left heart catheterization. 4. Selective coronary angiography. 5. Vein graft angiography. 6. RUIZ angiography. INDICATION: Unstable angina and coronary artery disease. PROCEDURE PERFORMED: After informed consent was obtained with detailed description of risks and benefits as well as alternative therapies, the patient elected to proceed with angiogram and angioplasty. The right femoral area was prepped and draped in normal sterile fashion. Right femoral artery was cannulated via modified Seldinger technique with placement of 6-Niger[place] sheath. All catheters were exchanged through this sheath. FINDINGS: Left ventriculogram performed in standard 30-degree BREWER view reveals good cardiac wall motion throughout all segments. Overall ejection fraction is preserved at 35%. SELECTIVE CORONARY ANGIOGRAPHY: 1. Left main is with no significant angiographic disease. 2. Left anterior descending has a total occlusion in the mid vessel. Prior to this, there is a LAD diagonal with 90% stenosis, is new from previous angiography. 3. Left circumflex is totally occluded. 4. Right coronary is patent. There are previously placed stents and these are widely patent. The distal right coronary has a new 95% stenosis. 5. RUIZ to the distal LAD is widely patent. Distal LAD is small and diffusely diseased, but widely patent. 6. Vein graft to the LAD diagonal is closed. 7. Vein graft to the circumflex is patent in a skipped fashion to OM1 and OM2. Vein graft is patent. Distal OM1 and OM2 are small and diffusely diseased, but patent. 8. Vein graft to the right coronary is closed. PTCA AND STENT OF THE RCA: The stent used was 2.25 x 18-mm [place]. Result was 0% residual stenosis. PTCA AND STENT OF THE LAD DIAGONAL: The stent used was 2.0 x 15-mm [place]. Result was 0% residual stenosis. OVERALL IMPRESSION: Successful PTCA and stent of the LAD diagonal and distal RCA, going from 95% stenosis on each to 0% residual. TRANSINT:[id number] Voice Confirmation ID: [id number] DOCUMENT ID: [id number] OPERATIVE REPORT [id number] ELIS PEDERSEN, ESTEBAN CODY at 1718 CC: [id number] DICTATION DATE: 07/27/18 160 KEEL PRESS OPERATOR: 07/27/18 1900 DIS IN 07/27/18 [facility] [address] [id number]
[~2018-07-27 10:36] MED LIST changes: +DIOVAN80 MG PO; +FOLIC ACID0.8 MG PO; +PRESERVISION AR1 CAP PO; +ZANAFLEX2 M1 PO
[2018-07-27 10:51] VITALS: Ht 175.3 cm; Wt 84.1 kg
[2018-07-27 11:43] LABS: BASOPHILS 0.1 % (0-2); EOSINOPHILS 0.3 % (0-7); HEMATOCRIT 38.8 % (36.0-48.0); HEMOGLOBIN 12.7 g/dL (12-16); IMMATURE GRANULOCYTES 0.2 % (0-5); LYMPHOCYTES 7.2 % (15-50); MCH 28.7 pg (26.0-34.0); MCHC 32.7 g/dL (31.0-37.0); MCV 87.6 fL (80.0-100.0); MEAN PLATELET VOLUME 9.7 fL (7.4-10.4); MONOCYTES 8.6 % (2-11); NEUTROPHILS 83.6 % (40-80); PLATELET COUNT 201 10x3/uL (130-400); RBC 4.43 10x6/uL (4.00-5.40); RDW 15.7 % (11.5-14.5); WBC 11.9 10x3/uL (4.8-10.8)
[2018-07-27 12:00] LABS: APTT 29.4 SECONDS (22.8-39.4); INR 0.97 (0.85-1.17); PROTIME 12.4 SECONDS (11.6-15.0)
[2018-07-27 12:06] LABS: ALT (SGPT) 23 U/L (10-68)
[2018-07-27 12:11] LABS: ALBUMIN 3.3 g/dL (3.4-5.0); ALKALINE PHOSPHATASE 108 U/L (46-116); BILIRUBIN - TOTAL 0.34 mg/dL (0.2-1.3); CALC OSMOLALITY 269 mosm/kg (275-300); CALCIUM 8.4 mg/dL (8.5-10.1); CARBON DIOXIDE 24.7 mmol/L (21.0-32.0); CHLORIDE - SERUM 100 mmol/L (98-107); CKMB 2.1 U/L (0.0-3.6); CREATINE KINASE 92 UL (21-215); CREATININE - SERUM 1.8 mg/dL (0.6-1.3); GLUCOSE 165 mg/dL (74-106); MAGNESIUM - SERUM 1.5 mg/dL (1.8-2.4); SODIUM 129 mmol/L (136-145); UREA NITROGEN 31 mg/dL (7-18); eGFR NON AFRICAN AMERICAN 29 mL/min (90-120)
[2018-07-27 15:12] VITALS: BP 124/86
== END 2018-07-27 20:00 | disposition home or self-care (01) ==
LOC: OBSVTIME → D.OPS 10:36 → D.ER 10:36 → D.CLR 13:34 → D.ER 13:34 → D.EDHOLD 13:34 → OBSVTIME 13:34 → EDSTATUS 13:50 → D.EDHOLD 16:17 → D.CLR 16:17 → D.ER 17:06 → D.CLR 20:00 → D.OPS 20:00 → D.CLR 20:00
PROVIDERS: Emergency Medicine
DX: I25.110 Atherosclerotic heart disease of native coronary artery with unstable angina pectoris (principal); Z95.5 Presence of coronary angioplasty implant and graft; I10 Essential (primary) hypertension; E78.5 Hyperlipidemia, unspecified
CPT/HCPCS: 93459; C9600 ×2

== ENCOUNTER 2018-09-16 17:50 | Outpatient (CLI) | payer MEDICARE ==
[2018-07-27 10:51] VITALS: BMI 27.3
== END 2018-09-16 23:59 | disposition home or self-care (01) ==
LOC: D.MAMMO 17:50
DX: Z12.31 Encounter for screening mammogram for malignant neoplasm of breast (principal)

== ENCOUNTER 2018-12-20 07:48 | Outpatient (CLI) | payer MEDICARE ==
[~2018-12-20] VITALS: Ht 172.7 cm; Wt 83.2 kg
--- NOTE | ~2018-12-20 | HEMODYNAMI ---
PATIENT:ELIS PEDERSEN MEDICAL RECORD: [id number] : 49 LOCATION:[facility] ADMISSION DATE: 12/20/18 Generatedon:12/20/201810:04 Patient name: ELIS PEDERSEN Patient #: [id number] SSN: : 1945 Date of study: 12/20/2018 Page: Of Hemodynamic Procedure Report Patient Data Patient Demographics Procedure consent was obtained First Name: ELIS Gender: Female Last Name: SLAVA : 1945 Middle Initial: YULIET Age: 73 year(s) Patient #: [id number] Race: Additional ID: [id number] Contact details [address]: [address] [place] [address] State: [place] City: [place] Zip code: [address] Past Medical History Allergies: No known allergies Admission Admission Data Admission Date: 12/20/2018 Admission Time: 7:48 Admit Source: Other Procedure Procedure Types Cath Procedure Diagnostic Procedure LHC LHC w/Coronaries w/Grafts Procedure Description Procedure Date Procedure Date: 12/20/2018 Procedure Start Time: 9:52 Procedure End Time: 9:59 Procedure Staff Name Function Waylon Headley MD Performing Physician Orestes Aldana RT Monitor Ankita Boo RN Nurse Summer Garcia RT Scrub Procedure Data Cath Procedure Fluoroscopy Diagnostic fluoroscopy Total fluoroscopy Time: 1.3 time: 1.3 min min Diagnostic fluoroscopy Total fluoroscopy dose: 301 dose: 301 mGy mGy Contrast Material Contrast Material Type Amount (ml) Isovue 300 45 Entry Location Entry Primary Successful Side Size Upsize Upsize Entry Closure Succes sful Closure Location (Fr) 1 (Fr) 2 (Fr) Remarks Device Remarks Femoral Right 5 Fr Exoseal artery Diagnostic catheters Device Type Used For End Catheter Placement MULTIPACK Pigtail 5 Fr LV Angiography catheter MULTIPACK JL 4.0 5Fr Left Coronary catheter Angiography MULTIPACK 3DRC 5Fr Right Coronary catheter Angiography DIAGNOSTIC AR2 MOD 5 Fr SVG Angiography catheter ([id number]) Procedure Complications No complications Procedure Medications Medication Administration Route Dosage 0.9% NaCl I.V. 100 ml/hr Oxygen etCO2 Nasal cannula 2 l/min Lidocaine 2% added to field 20 Heparin Flush Bag added to field 2 bags (1000units/500ml NS) Versed I.V. 2 mg Fentanyl I.V. 50 mcg Versed I.V. 2 mg Fentanyl I.V. 50 mcg Hemodynamics Rest Heart Rate: 64 (bpm) Snapshots Pre Cath Intra NCS Post Cath Vital Signs Time Heart Resp SPO2 etCO2 NIBP (mmHg) Rhythm Pain Sedation Rate (ipm) (%) (mmHg) Status Level (bpm) 9:36:51 63 17 100 35.3 174/83(145) NSR 0 (11) 10(A) , No pain 9:41:17 65 16 100 15.7 180/77(131) NSR 0 (11) 10(A) , No pain 9:45:39 64 15 99 11.2 146/74(125) NSR 0 (11) 10(A) , No pain 9:50:38 68 17 99 20 147/65(108) NSR 0 (11) 10(A) , No pain 9:54:57 71 16 97 33.8 141/67(115) NSR 0 (11) 9(A) , No pain 9:59:15 70 10 100 44.3 153/71(118) NSR 0 (11) 10(A) , No pain Medications Time Medication Route Dose Verified Delivered Reason Notes Effe ctiveness by by 9:34:46 0.9% NaCl I.V. 100 Waylon Ankita used for ml/hr Fang Boo timber buyer 9:34:53 Oxygen etCO2 2 Waylon Ankita used for Nasal l/min Fang Boo procedure cannula RN 9:34:59 Lidocaine 2% added 20ml Waylon Connors for local to vial Fang Headley MD anesthetic field 9:35:04 Heparin Flush added 2 Waylon Waylon used for Bag to bags Fang Headley MD procedure (1000units/500ml field NS) 9:47:48 Versed I.V. 2 mg Waylon Ankita for Fang Boo sedation RN 9:47:58 Fentanyl I.V. 50 Waylno Ankita for mcg Fang Boo sedation RN 9:53:45 Versed I.V. 2 mg Waylon Boo sedation RN 9:53:51 Fentanyl I.V. 50 Waylon Luciano for [facility] Fang Boo sedation [employer] attendant Log Time Note 9:21:10 Admit Source: Other 9:21:25 Diagnostic Cath status Elective 9:21:27 Orestes Aldana RT(R) sent for patient. Start room use. 9:21:29 Time tracking: Regular hours (M-F 7:00 - 5:00) 9:21:34 Plan of Care:Hemodynamics will remain stable., Cardiac rhythm will remain stable., Comfort level will be maintained., Respiratory function will remain adequate., Patient/ family verbilizes understanding of procedure., Procedure tolerated without complication., Recovers from procedure without complications.. 9:34:29 Vital chart was started 9:34:46 0.9% NaCl 100 ml/hr I.V. was administered by Ankita Boo RN; used for procedure; 9:34:53 Oxygen 2 l/min etCO2 Nasal cannula was administered by Ankita Boo RN; used for procedure; 9:34:59 Lidocaine 2% 20ml vial added to field was administered by Waylon Headley MD; for local anesthetic; 9:35:04 Heparin Flush Bag (1000units/500ml NS) 2 bags added to field was administered by Waylon Headley MD; used for procedure; 9:40:44 Patient received from Pre/Post Procedure Room to CCL 1 Alert and oriented. Tansferred to table in Supine position. 9:40:50 Warm blankets applied, and rachelle hugger turned on for patient comfort. 9:40:51 Correct patient and procedure confirmed by team. 9:40:53 Signed procedure consent form obtained from patient. 9:40:53 ECG and BP/O2 sat monitors applied to patient. 9:40:54 Baseline sample Acquired. 9:41:28 Rhythm: sinus rhythm 9:41:33 Full Disclosure recording started 9:42:07 H&P Date Dictated: 12/15/2018 Within 30 days and on chart.. 9:42:16 Pre-procedure instructions explained to patient. 9:42:17 Pre-op teaching completed and patient verbalized understanding. 9:42:18 Family in waiting room. 9:42:20 Patient NPO since Midnight. 9:43:31 Patient allergic to No known allergies 9:43:38 Is the patient allergic to Iodine/contrast media? No. 9:43:40 Is patient on blood thinner?Yes 9:43:43 ACC The patient was administered the following blood thiners within the last 24 hours: ACCPlavix 9:43:45 Patient diabetic? Yes. 9:43:46 If diabetic: On Metformin? Yes 9:43:50 If on Metformin: Last Dose? 12/19/2018 9:43:57 ----Pre-sedation anethsthesia assessment.---- 9:43:59 Previous problem with sedation/anesthesia? No ? 9:44:01 Snore? Yes 9:44:02 Sleep apnea? Yes 9:44:06 Deviated septum? No 9:44:08 Opens mouth fully? Yes 9:44:09 Sticks out tongue? Yes 9:44:13 Airway obstruction? No ? 9:44:19 Dentures? No ? 9:44:22 Pre procedure: right dorsailis pedis pulse 2+ Normal; easily identifiable; not easily obliterated 9:44:31 Patient pain scale 0/10 ?. 9:44:38 IV patent on arrival in left antecubital with 0.9% NaCl at 10ml/hr. 9:44:44 Lab results completed and on chart. 9:44:47 Right groin area was prepped with chlora-prep and draped in sterile fashion 9:44:48 Alarms reviewed by Thang Valente 9:44:49 9:44:50 Sharps counted by scrub and verified by Eyad 9:44:52 Physician paged 9:46:30 Physician arrived 9:46:31 --------ALL STOP TIME OUT------ 9:46:31 Final Timeout: patient, procedure, and site verified with staff and physician. All members of the team are in agreement. 9:46:33 Right groin site verified by team. 9:46:38 Maximum allowable Isovue 300 dose 300ml. Physician notified. (300ml for normal creatinines. For patients with creatinine of 1.7 or higher multiply weight(kg) x 5 divided by creatinine.) 9:46:42 Fire Safety Assessment: A--An alcohol-based skin anteseptic being used preoperatively., C--Open oxygen or nitrous oxide is being used., D--An ESU, laser, or fiber-optic light is being used. 9:46:45 Physical assessment completed. ASA score P 2 - A patient with mild systemic disease as per Waylon Headley MD. 9:46:49 Sedation plan: IV Moderate Sedation Medication:Versed, Fentanyl 9:47:48 Versed 2 mg I.V. was administered by Ankita Boo RN; for sedation; 9:47:58 Fentanyl 50 mcg I.V. was administered by Ankita Boo RN; for sedation; 9:50:07 Use device set Femoral Dx 9:50:09 ACIST Syringe (74211) opened to sterile field. 9:50:09 Bag Decanter (2002S) opened to sterile field. 9:50:10 Medline Cath Pack ([id number]) opened to sterile field. 9:50:10 DIAGNOSTIC WIRE .035 260cm J wire (501042) opened to sterile field. 9:50:12 ACIST Hand Control (87050) opened to sterile field. 9:50:13 ACIST Manifold (35508) opened to sterile field. 9:50:13 DIAGNOSTIC Multipack 5Fr catheter set (IS2260) opened to sterile field. 9:50:14 Tegaderm 4 x 4 (1626W) opened to sterile field. 9:50:15 SHEATH 5FR [place] (ZDE615) opened to sterile field. 9:50:19 Procedure started. 9:52:07 Local anesthetic to right femoral artery with Lidocaine 2% by Waylon Headley MD.INITIAL ACCESS ONLY 9:52:15 A 5 Fr sheath was inserted into the Right Femoral artery 9:52:19 Zero performed for pressure channel P1 9:52:36 A MULTIPACK Pigtail 5 Fr catheter was advanced over the wire and used for LV Angiography. 9:53:45 Versed 2 mg I.V. was administered by Ankita Rajeev RN; for sedation; 9:53:51 Fentanyl 50 mcg I.V. was administered by Ankita Boo RN; for sedation; 9:54:20 LV angiography performed. 9:54:22 LV gram done using BREWER 9:54:28 EF : 50 % 9:54:30 Catheter removed. 9:54:36 A MULTIPACK JL 4.0 5Fr catheter was advanced over the wire and used for Left Coronary Angiography. 9:54:39 LCA angiography performed. 9:54:44 Catheter removed. 9:54:51 A MULTIPACK 3DRC 5Fr catheter was advanced over the wire and used for Right Coronary Angiography. 9:54:55 RUIZ to LAD angiography performed. 9:55:49 RCA angiography performed. 9:56:28 Catheter removed. 9:56:33 A DIAGNOSTIC AR2 MOD 5 Fr catheter ([id number]) was advanced over the wire and used for SVG Angiography. 9:56:39 SVG to Circ angiography performed. 9:57:23 Catheter removed. 9:57:34 EXOSEAL 5Fr (EX500) opened to sterile field. 9:57:43 Contrast amount:Isovue 300 45ml. 9:57:49 Sheath removed intact; hemostasis achieved with Exoseal to the Right Femoral artery. 9:57:50 Procedure ended.(Physican Out) 9:58:01 Fluoroscopy time 01.30 minutes. 9:58:07 Flurop Dose total: 301 9:58:07 Fluoroscopy dose: 301 mGy 9:58:08 Sharps counted by scrub and verified by R.N. 9:58:18 Insertion/operative site no bleeding no hematoma. 9:58:20 Post-op/insertion site Right Femoral artery dressed using a 4 x 4 and Tegaderm. 9:58:52 Post right femoral artery:stable 9:58:53 Post Procedure Pulses reassessed and unchanged 9:58:56 Post procedure: right dorsailis pedis pulse 1+ Palpable, but thready & weak; easily obliterated. 9:58:59 Post-procedure physical assessment completed. ASA score P 2 - A patient with mild systemic disease as per Waylon Headley MD. 9:59:02 Post procedure rhythm: unchanged. 9:59:03 Post procedure instruction explained to patient.Patient verbalizes understanding. 9:59:04 Procedure and supply charges have been captured, reviewed, submitted and are correct. 9:59:20 Procedure Complication : No complications 9:59:22 Vital chart was stopped 9:59:23 See physician's report for complete and final results. 9:59:26 Report given to Pre/Post Procedure Room. 9:59:29 Patient transfered to Pre/Post Procedure Room with Stretcher. 9:59:31 Procedure ended. 9:59:31 Full Disclosure recording stopped 9:59:39 End room use (Document Last) Device Usage Item Name Manufacture Quantity Catalog Hospital Part Current Minimal L ot# / Number Charge Number Stock Stock Serial# Code ACIST Acist 1 [id number] 326481 599938 546183 20 Syringe Medical (03913) Systems Inc Bag Microtek 1 2001S 170809 33067 485252 5 Decanter Medical Inc. () Medline Medline 1 [id number] 273505 16186 331355 5 Cath Pack ([id number]) DIAGNOSTIC [place] 1 003655 510179 577125 665419 30 WIRE .035 260cm J wire (414469) ACIST Hand Acist 1 14010 739328 974210 108639 5 Control Medical (08342) Systems Inc ACIST Acist 1 71041 289485 824366 587515 5 Manifold Medical (11840) Systems Inc DIAGNOSTIC Cardinal 1 [id number] 080813 73413 207965 30 Multipack Health 5Fr catheter set (RF0527) Tegaderm 4 3M 1 1626W 150511 835765 236721 5 x 4 (1626W) SHEATH 5FR Terumo 1 ERB511 826573 228139 981683 5 [place] (SVC466) MULTIPACK Cardinal 1 336978 5 Pigtail 5 Health Fr catheter MULTIPACK Cardinal 1 940382 5 JL 4.0 5Fr Health catheter MULTIPACK Cardinal 1 057247 5 3DRC 5Fr Health catheter DIAGNOSTIC Cardinal 1 [id number] 478390 084177 183363 20 AR2 MOD 5 Health Fr catheter (473450M) EXOSEAL 5Fr Cardinal 1 EX500 189085 546198 575689 10 (EX500) Health Signature Audit [place] Stage Time Signature Unsigned Intra-Procedure 12/20/2018 Orestes Aldana RT(R) 10:04:41 AM Signatures Monitor : Orestes Aldana RT Signature : Date : Time : [address] [place] [address]
--- NOTE | ~2018-12-20 | OP ---
PATIENT NAME: ELIS PEDERSEN MEDICAL RECORD: [id number] :49 LOCATION:D.CAT ADMISSION DATE: SURGEON: ESTEBAN KELLER MD DATE OF OPERATION: 12/20/2018 PROCEDURES: 1. Left heart catheterization. 2. Selective coronary angiography. 3. Vein graft angiography. 4. RUIZ angiography. 5. Left ventriculogram. INDICATIONS: Angina and coronary artery disease. PROCEDURE IN DETAIL: After informed consent was obtained and after a detailed explanation of risks, benefits as well as alternative therapies, the patient elected to proceed with angiogram and heart catheterization. The right femoral area was prepped and draped in normal sterile fashion. Right femoral artery was cannulated via modified Seldinger technique with placement of 5-Nigerian sheath. All catheters exchanged through this sheath. FINDINGS: Left ventriculogram was performed in a standard 30-degree BREWER view, reveals good cardiac wall motion throughout all segments. Overall ejection fraction estimated at 60%. SELECTIVE CORONARY ANGIOGRAPHY: 1. Left main is with no significant angiographic disease. 2. Left anterior descending has a total occlusion in the mid vessel. 3. RUIZ to the LAD is widely patent. Distal LAD is widely patent. 4. The left circumflex is totally occluded in the mid vessel. 5. Vein graft to circumflex is widely patent. Distal circumflex is widely patent. 6. The right coronary has previously placed stents, these are widely patent. OVERALL IMPRESSION: Wide patency of the previously placed stents as well as vein graft to the circumflex and RUIZ to the LAD. Continue medical management of the coronary artery disease and cardiac risk factors. TRANSINT:[id number] Voice Confirmation ID: [id number] DOCUMENT ID: [id number] ESTEBAN KELLER MD CC: [id number] DICTATION DATE: 12/20/18 1002 BEEF PLUCK TRIMMER: 12/20/18 1021 [facility] [address] [place] [address]
[2018-12-20] MEDS ORDERED: GLUCOPHAGE500 MG PO (08:44)
[2018-12-20 08:56] VITALS: BP 162/57; Ht 172.7 cm; Wt 83.2 kg
[2018-12-20 09:08] LABS: ANION GAP 13.9 mmol/L (8-16); CALCIUM 8.7 mg/dL (8.5-10.1); CARBON DIOXIDE 25.5 mmol/L (21.0-32.0); CREATININE - SERUM 1.3 mg/dL (0.6-1.3); POTASSIUM - SERUM 4.4 mmol/L (3.5-5.1)
[2018-12-20 09:11] LABS: BASOPHILS 0.9 % (0-2); EOSINOPHILS 5.6 % (0-7); IMMATURE GRANULOCYTES 0.2 % (0-5); LYMPHOCYTES 24.7 % (15-50); MCH 28.2 pg (26.0-34.0); MCHC 32.4 g/dL (31.0-37.0); MCV 87.1 fL (80.0-100.0); MEAN PLATELET VOLUME 9.4 fL (7.4-10.4); MONOCYTES 7.8 % (2-11); NEUTROPHILS 60.8 % (40-80); PLATELET COUNT 215 10x3/uL (130-400); RBC 4.25 10x6/uL (4.00-5.40); WBC 5.9 10x3/uL (4.8-10.8)
--- NOTE | 2018-12-20 10:10 | NUR ---
PT RECEIVED VIA STRETCHER FROM TETRYL SCREEN OPERATOR FOR RECOVERY. PT DROWSY BUT VERBALLY AROUSABLE. R GROIN W 5FR EXOCELE, DRESSING CDI NO BLEEDING OR HEMATOMA NOTED. PEDAL PULSES PALPABLE, LEG PINK AND WARM. HR NSR RATE 59, BP 167/65, O2 SAT 96 ON 2L/NC. PT INSTRUCTED TO KEEP HEAD ON PILLOW AND LEG STRAIGHT, SHE VERBALIZED UNDERSTANDING. PT DENIES PAIN OR NEEDS AT THIS TIME. CALL LIGHT IN REACH.
--- NOTE | 2018-12-20 10:30 | NUR ---
PT RESTING COMFORTABLY, R GROIN SOFT, NO BLEEDING OR HEMATOMA NOTED. LEG PINK AND WARM, PEDAL PULSES PALPABLE. CALL LIGHT IN REACH. VSS
--- NOTE | 2018-12-20 11:00 | NUR ---
PT REMAINS RESTING COMFORTABLY, DENIES PAIN OR NEEDS. R GROIN DRESSING CDI NO BLEEDING OR HEMATOMA NOTED. HR SINUS NONA 53, BP 153/59, O2 SAT 100 ON 2L/NC. AT BEDSIDE, CALL LIGHT IN REACH
--- NOTE | 2018-12-20 11:30 | NUR ---
PT DOING WELL, R GROIN SOFT, DRESSING CDI NO BLEEDING OR SWELLING NOTED. R LEG PINK AND WARM, PEDAL PULSES PALPABLE. CALL LIGHT IN REACH
--- NOTE | 2018-12-20 11:40 | NUR ---
HOB ELEVATED, SANDWICH AND DRINK SERVED.
--- NOTE | 2018-12-20 11:50 | NUR ---
DR KELLER IN AND SPOKE WITH PT AND REGARDING PROCEDURE RESULTS AND PLAN OF CARE
--- NOTE | 2018-12-20 11:55 | NUR ---
DISCHARGE TEACHING COMPLETED W PT AND , BOTH VERBALIZED UNDERSTANDING. O2 REMOVED. PT WANTS TO FINISH HER SANDWICH BEFORE DISCHARGE. R GROIN STILL SOFT, NO BLEEDING OR HEMATOMA NOTED.
--- NOTE | 2018-12-20 12:05 | NUR ---
IV REMOVED W CATH INTACT, MONITORS REMOVED. PT UP TO DRESS FOR DISHCARGE W ASSIT FROM .
--- NOTE | 2018-12-20 12:16 | NUR ---
PT DISCHARGED VIA WC TO PRIVATE VEHICLE WITH ALL BELONGINGS.
== END 2018-12-20 12:15 | disposition home or self-care (01) ==
LOC: D.CATH 07:48
PROVIDERS: ATTEND Internal Medicine Interventional Cardiology
DX: I25.110 Atherosclerotic heart disease of native coronary artery with unstable angina pectoris (principal)

== ENCOUNTER 2019-01-28 21:23 | Emergency (ER) | payer MEDICARE ==
[~2019-01-28 21:23] MED LIST changes: +GLUCOPHAGE500 MG PO
[2019-01-28 21:36] VITALS: BMI 27.8
[2019-01-28 22:22] LABS: BASOPHILS 0.5 % (0-2); EOSINOPHILS 2.9 % (0-7); HEMATOCRIT 37.6 % (36.0-48.0); HEMOGLOBIN 12.2 g/dL (12-16); IMMATURE GRANULOCYTES 0.2 % (0-5); LYMPHOCYTES 24.2 % (15-50); MCH 28.2 pg (26.0-34.0); MCHC 32.4 g/dL (31.0-37.0); MEAN PLATELET VOLUME 9.4 fL (7.4-10.4); MONOCYTES 11.1 % (2-11); NEUTROPHILS 61.1 % (40-80); PLATELET COUNT 186 10x3/uL (130-400); RBC 4.32 10x6/uL (4.00-5.40); RDW 14.6 % (11.5-14.5); WBC 5.6 10x3/uL (4.8-10.8)
[2019-01-28 22:37] LABS: BILIRUBIN - TOTAL 0.46 mg/dL (0.2-1.3); CALCIUM 8.9 mg/dL (8.5-10.1); CARBON DIOXIDE 24.6 mmol/L (21.0-32.0); CREATININE - SERUM 1.5 mg/dL (0.6-1.3); POTASSIUM - SERUM 4.6 mmol/L (3.5-5.1); PROTEIN - SERUM 7.8 g/dL (6.4-8.2)
[2019-01-29] MEDS ORDERED: HYDROCODON-ACE1 EAC2 PO (00:13)
[2019-01-29] MEDS ORDERED: CYCLOBENZAPRINE10 MG PO (00:13)
[2019-01-29] MEDS ORDERED: MEDROL DOSE PACK4 MG PO (00:13)
[2019-01-29 00:54] VITALS: BP 121/77
== END 2019-01-29 00:50 | disposition home or self-care (01) ==
LOC: D.ER 21:23
PROVIDERS: Family Medicine
DX: S00.83XA Contusion of other part of head, initial encounter (principal); W18.30XA Fall on same level, unspecified, initial encounter; Y93.89 Activity, other specified; Y92.89 Other specified places as the place of occurrence of the external cause

== ENCOUNTER 2020-06-03 10:29 | Day surgery (SDC) | payer MEDICARE ==
[~2020-06-03] VITALS: Ht 172.7 cm; Wt 80.9 kg
--- NOTE | ~2020-06-03 | OP ---
PATIENT NAME: ELIS PEDERSEN MEDICAL RECORD: [id number] :49 LOCATION:[facility] ADMISSION DATE: SURGEON: JESUS LOZA DO DATE OF OPERATION: 06/03/2020 PROCEDURE: EGD with biopsies. INDICATION FOR PROCEDURE: Epigastric pain. SCOPE: Olympus video gastroscope. MEDICATIONS: Propofol 260 mg IV per anesthesia. ESTIMATED BLOOD LOSS: Minimal. COMPLICATIONS: None. FINDINGS: Informed consent was given. The patient was made comfortable with the above medication. After reaching adequate level of sedation by slow IV push, the patient was placed in the left side. The endoscope was advanced under direct visualization through the mouth to the small intestine. The esophagus appeared normal down to the GE junction. At the GE junction, there was evidence of LA class A reflux-induced esophagitis. The endoscope was advanced down the GE junction into the stomach where there was a moderate-sized hiatal hernia. There was some associated gastritis characterized by granularity in this hernia sac. The endoscope was advanced beyond this site into the antrum and prepyloric region. The mucosa was erythematous and granular consistent with chronic gastritis. There was evidence of prior surgery with a gastroenterostomy present. Just distal to the anastomosis, there was a small intestinal ulceration, which was clean based and without bleeding stigmata. There was some further erythema and granularity in this first portion of the intestine which normalized further down the small bowel. Cold forceps biopsies were taken from the small intestine as well as the distal stomach, this submitted for histopathology to rule out the presence of H. pylori. The endoscope was withdrawn from the patient. The patient tolerated the procedure well and there were no complications. IMPRESSION: 1. LA class A reflux-induced esophagitis. 2. Moderate sliding hiatal hernia. 3. Gastritis. 4. Evidence of prior surgery with gastroenterostomy. 5. Small intestinal ulceration. PLAN AND RECOMMENDATIONS: 1. Discharge home when recovery parameters are met. 2. Follow up biopsy specimen results. 3. GERD diet and reflux precautions. 4. Continue current medications. 5. Prilosec 40 mg daily times 60 days. A prescription will be provided to the patient wishes. 6. Follow up in GI clinic in 2 months to assure the symptoms have improved. TRANSINT:[id number] Voice Confirmation ID: [id number] DOCUMENT ID: [id number] OPERATIVE REPORT [id number] SLAVA,JESUS VINCENT DO CC: [id number] DICTATION DATE: 06/03/20 1308 DYE MIXER: 06/03/20 2215 [facility] 06/03/20 [place] [id number] [place] [id number]
[~2020-06-03 10:29] MED LIST changes: +CYCLOBENZAPRINE10 MG PO; +HYDROCODON-ACE1 EAC2 PO; +MEDROL DOSE PACK4 MG PO
[2020-06-03 10:57] LABS: BASOPHILS 0.8 % (0-2); EOSINOPHILS 4.6 % (0-7); HEMATOCRIT 40.8 % (36.0-48.0); HEMOGLOBIN 13.4 g/dL (12-16); IMMATURE GRANULOCYTES 0.3 % (0-5); LYMPHOCYTES 29.8 % (15-50); MCH 32.6 pg (26.0-34.0); MCHC 32.8 g/dL (31.0-37.0); MCV 99.3 fL (80.0-100.0); MONOCYTES 10.6 % (2-11); NEUTROPHILS 53.9 % (40-80); PLATELET COUNT 164 10x3/uL (130-400); RBC 4.11 10x6/uL (4.00-5.40); RDW 13.8 % (11.5-14.5); WBC 3.7 10x3/uL (4.8-10.8)
[2020-06-03 11:10] LABS: ANION GAP 10.3 mmol/L (8-16); CARBON DIOXIDE 27.5 mmol/L (21.0-32.0); CREATININE - SERUM 1.2 mg/dL (0.6-1.3); POTASSIUM - SERUM 4.8 mmol/L (3.5-5.1)
[2020-06-03 11:35] VITALS: BP 165/77; Ht 172.7 cm; Wt 80.9 kg
== END 2020-06-03 13:50 | disposition home or self-care (01) ==
LOC: D.OPS 10:29
PROVIDERS: Anesthesiology; ATTEND Internal Medicine Gastroenterology
DX: R10.13 Epigastric pain (principal); K57.30 Diverticulosis of large intestine without perforation or abscess without bleeding; Z86.010 Personal history of colon polyps; Z12.11 Encounter for screening for malignant neoplasm of colon; K21.00 Gastro-esophageal reflux disease with esophagitis, without bleeding; K44.9 Diaphragmatic hernia without obstruction or gangrene; K29.70 Gastritis, unspecified, without bleeding; K63.3 Ulcer of intestine

== ENCOUNTER 2020-06-10 11:21 | Day surgery (SDC) | payer MEDICARE ==
[~2020-06-10] VITALS: Ht 172.7 cm; Wt 83.6 kg
[2020-06-10 11:56] LABS: HEMATOCRIT 41.9 % (36.0-48.0); HEMOGLOBIN 13.8 g/dL (12-16); MCH 32.6 pg (26.0-34.0); MCHC 32.9 g/dL (31.0-37.0); MCV 99.1 fL (80.0-100.0); MEAN PLATELET VOLUME 9.3 fL (7.4-10.4); RBC 4.23 10x6/uL (4.00-5.40); RDW 13.7 % (11.5-14.5); WBC 4.7 10x3/uL (4.8-10.8)
[2020-06-10 12:05] LABS: ANION GAP 11.7 mmol/L (8-16); CARBON DIOXIDE 28.5 mmol/L (21.0-32.0); CREATININE - SERUM 1.2 mg/dL (0.6-1.3); POTASSIUM - SERUM 4.2 mmol/L (3.5-5.1)
[2020-06-10] MEDS ORDERED: LOSARTAN-HCTZ1 EAC1 PO (12:11)
[2020-06-10] MEDS ORDERED: CELEXA20 MG PO (12:13)
[2020-06-10 12:24] VITALS: BP 150/78; Ht 172.7 cm; Wt 83.6 kg
--- NOTE | 2020-06-12 10:13 | OP ---
PATIENT NAME: ELIS PEDERSEN MEDICAL RECORD: [id number] :49 LOCATION:D.OPS ADMISSION DATE: SURGEON: JESUS LOZA DO DATE OF OPERATION: 06/10/2020 PROCEDURE: Colonoscopy with polypectomy. INDICATIONS FOR PROCEDURE: Screening colonoscopy, history of colon polyps, diverticulosis. SCOPE: Olympus video pediatric colonoscope. MEDICATIONS: Propofol 360 mg IV per anesthesia. WITHDRAWAL TIME: 12 minutes. ESTIMATED BLOOD LOSS: Minimal. COMPLICATIONS: None. FINDINGS: Informed consent was given. The patient was made comfortable with the above medication. After reaching an adequate level of sedation by slow IV push, the patient was placed on her left side. A digital rectal examination was performed and was normal. The endoscope was advanced under direct visualization through the rectum to the cecum and terminal ileum. The endoscope was slowly withdrawn and mucosa was carefully examined. The prep quality was good. There was a single benign-appearing sessile polyp visualized on today's examination. It was located in the transverse colon and measured approximately 3-4 mm in diameter. It was removed using a hot forceps. Retroflexion was performed in the rectum with visualization of grade I internal hemorrhoids without bleeding. The endoscope was withdrawn from the patient. The patient tolerated the procedure well and there were no complications. IMPRESSION: 1. A single benign-appearing polyp as described above, removed using hot forceps. 2. Grade I internal hemorrhoids without bleeding. PLAN AND RECOMMENDATIONS: 1. Discharge home when recovery parameters are met. 2. Follow up biopsy specimen results. 3. High fiber diet. 4. Continue current medications. 5. Recall colonoscopy in 5 years. TRANSINT:[id number] Voice Confirmation ID: [id number] DOCUMENT ID: [id number] OPERATIVE REPORT [id number] ELIS PEDERSEN JESUS LOZA DO at 1013 CC: [id number] DICTATION DATE: 06/10/20 1305 ORDAINED MINISTER: 06/10/200 [facility] 06/10/20 [facility] [address] [place] [address]
== END 2020-06-10 13:45 | disposition home or self-care (01) ==
LOC: D.OPS 11:21
PROVIDERS: Anesthesiology; ATTEND Internal Medicine Gastroenterology
DX: Z86.010 Personal history of colon polyps (principal); Z12.11 Encounter for screening for malignant neoplasm of colon; K57.90 Diverticulosis of intestine, part unspecified, without perforation or abscess without bleeding; K63.5 Polyp of colon; K64.0 First degree hemorrhoids; R10.9 Unspecified abdominal pain